=== PATIENT | male | born 1965 | race Two or more races ===

== ENCOUNTER 2020-10-09 04:31 | Emergency (ER) | payer OTHER ==
[~2020-10-09] VITALS: Ht 165.1 cm; Wt 68.0 kg
--- NOTE | 2020-10-09 08:00 | NUR ---
[id number], FOUND ON FLOOR NEXT TO BOTTLE OF VODKA, POSS ETOH. SLEEPING AT THIS TIME. RESPIRATION REGULAR AND UNLABORED. PATIENT IS IN NO APPARENT DISTRESS. WILL CONTINUE TO MONITOR THE PATIENT
--- NOTE | 2020-10-09 09:28 | NUR ---
THE PATIENT LEFT THE ER WITHOUT WAITING FOR THE DISCHARGE PAPERS DESPITE EXPLIANING RISKS AND BENEFITS. ALERT AND ORIENTEDED X3. DENIES PAIN. IN ROOM AIR AND DENIES SOB. RESPIRATION REGULAR AND UNLABORED. LEFT ER IN STABLE CONDITION AND AMBULATING.
[2020-10-09 09:29] VITALS: BP 136/82
== END 2020-10-09 09:29 | disposition home or self-care (01) ==
LOC: ER 04:33 → EDBD 04:33 → ER 09:29
DX: F10.129 Alcohol abuse with intoxication, unspecified (principal); Y90.9 Presence of alcohol in blood, level not specified